=== PATIENT | male | born 1945 | race Caucasian/White ===

== ENCOUNTER → 2019-09-14 11:41 | Outpatient (CLI) | payer MEDICARE, SELFPAY ==
[2019-09-14 12:23] LABS: Influenza A - CEPHEID Flu A NEGATIVE (NEGATIVE); Influenza B - CEPHEID Flu B NEGATIVE (NEGATIVE)
== END ==
PROVIDERS: Visit Provider Physician Assistant
DX: R68.89 Other general symptoms and signs (principal)
CPT/HCPCS: 87502

== ENCOUNTER 2022-05-06 13:01 | Emergency (ER) | payer MEDICARE, SELFPAY ==
[2022-05-06 13:22] VITALS: BP 161/78; PULSE 94; RESP 18; TEMP 37.7; O2SAT 95; BMI 30.4
[2022-05-06 14:05] LABS: COVID19 -Nasal RAPID POSITIVE (Negative)
--- NOTE | 2022-05-06 20:06 | ED_ITS ---
HPI - URI/Sore Throat <CARLITO Morrell - Last Filed: 05/06/22 20:09> General Chief Complaint: Upper Respiratory Symptoms Stated Complaint: Fever, Chills, Not sleeping, Diarhea Time Seen by Provider: 05/06/22 14:48 Source: patient Mode of arrival: Ambulatory History of Present Illness HPI Narrative: 76-year-old male who presents to the emergency department with concern about COVID illness. He states that he has had a fever and chills, he is not sleeping well, has diarrhea and his symptoms started last night. He is COVID vaccinated, complains of congestion and a runny nose as well with fever and body aches. Denies any significant medical conditions, he is not on anticoagulants. He denies any severe shortness of breath, denies any chest pain, vomiting, wheezing or history of prior lung disease. Related Data Home Medications Medication Instructions Recorded Confirmed ascorbate calcium (vitamin C) PO 09/14/19 09/14/19 enalapril maleate 10 mg tablet 10 mg PO BID 09/14/19 09/14/19 fish kyl-[id number]-4-vit C-vit E PO 09/14/19 09/14/19 hydrochlorothiazide 12.5 mg capsule 12.5 mg PO DAILY 09/14/19 09/14/19 simvastatin 20 mg tablet 20 mg PO DAILY 09/14/19 09/14/19 Previous Rx's Medication Instructions Recorded albuterol sulfate 90 mcg/actuation 1 inh inhalation Q4-6H PRN 09/14/19 aerosol inhaler shortness of breath #18 grams benzonatate 100 mg capsule 100 mg PO BEDTIME #20 caps 09/14/19 Allergies Allergy/AdvReac Type Severity Reaction Status Date / Time No Known Drug Allergies Allergy Verified 09/14/19 11:56 Review of Systems <CARLITO Morrell - Last Filed: 05/06/22 20:09> Review of Systems Narrative: Review of systems is negative for acute abnormalities unless otherwise noted in HPI Patient History <CARLITO Morrell - Last Filed: 05/06/22 20:09> Social History Smoking Status: Former smoker Smoking Status: Former smoker Substance Use Type: does not use Exam <CARLITO Morrell - Last Filed: 05/06/22 20:09> Narrative Exam Narrative: Reviewed vitals signs and nursing notes. General: cooperative, comfortable, in no acute distress, well groomed, febrile HEENT: symmetrical facial expressions, moist mucous membranes Cardiovascular: regular rate and rhythm, no peripheral edema, warm extremities Respiratory: normal effort, able to speak in complete sentences, without wheezing, stridor, or abnormal breath sounds. No retractions or tachypnea. GI: abdomen soft, nontender to palpation, nondistended, without masses, rebound tenderness or exquisite tenderness with exam. MSK: moves all extremities, neurovascularly intact, no weakness, normal tone Skin: brisk capillary refill, without pallor or erythema Neuro: normal speech and cognition, A&O x3, ambulatory, clear speech Psych: mental status is grossly normal, congruent mood, normal affect, pleasant and cooperative Initial Vital Signs Initial Vital Signs: Vital Signs Temperature 99.8 F H 05/06/22 13:22 Pulse Rate 94 H 05/06/22 13:22 Respiratory Rate 18 05/06/22 13:22 Blood Pressure 161/78 H 05/06/22 13:22 Pulse Oximetry 95 05/06/22 13:22 Oxygen Delivery Method 05/06/22 13:22 <Jeannie Daniels DO - Last Filed: 05/07/22 04:52> Initial Vital Signs Initial Vital Signs: Vital Signs Temperature 99.8 F H 05/06/22 13:22 Pulse Rate 94 H 05/06/22 13:22 Respiratory Rate 18 05/06/22 13:22 Blood Pressure 161/78 H 05/06/22 13:22 Pulse Oximetry 95 05/06/22 13:22 Oxygen Delivery Method 05/06/22 13:22 Course <CARLITO Morrell - Last Filed: 05/06/22 20:09> Orders Ordered: ED Orders 05/06/22 13:42 COVID19 -Nasal RAPID/Pre-Proc Stat Vital Signs Vital signs: Vital Signs - 8 hr 05/06/22 13:22 Temperature 99.8 F H Pulse Rate 94 H Respiratory Rate 18 Blood Pressure 161/78 H Pulse Oximetry 95 Oxygen Delivery Method Room Air <Jeannie Daniels DO - Last Filed: 05/07/22 04:52> Orders Ordered: ED Orders 05/06/22 13:42 COVID19 -Nasal RAPID/Pre-Proc Stat Vital Signs Vital signs: Vital Signs - 8 hr 05/06/22 13:22 Temperature 99.8 F H Pulse Rate 94 H Respiratory Rate 18 Blood Pressure 161/78 H Pulse Oximetry 95 Oxygen Delivery Method Room Air MDM - URI/Sore Throat <CARLITO Morrell - Last Filed: 05/06/22 20:09> Lab Data Labs: Lab Results 05/06/22 Range/Units 13:42 SARS-CoV-2 (PCR) Positive H (Negative) MDM Narrative Medical decision making narrative: This is a 76-year-old gentleman without significant prior medical history who presents to the emergency department with concern for COVID illness with congestion, body aches, fever, diarrhea and symptoms which started yesterday. He tested positive for COVID via PCR on day 2 of symptoms without hypoxia, respiratory distress, dehydration, or focal exam to suggest secondary bacterial infection. Discussed CDC guidelines for quarantine, mask wearing, physical distancing, and infection prevention measures such as frequent handwashing. Discussed supportive treatments: Tylenol/Motrin as needed for pain/fever. OTC decongestant medications and/or antihistamines for symptomatic relief. Maintain adequate fluid intake. Follow-up with PCP as directed. Return to clinic/ER instructions discussed for new, not improving, or worsening symptoms. All questions answered. Encourage patient to return to the emergency department for any worsening of his symptoms within the 1st 5 days of his illness because we can treat him for COVID if he does not have improvement. I encouraged him to go home and take Tylenol and ibuprofen as needed for his symptoms, patient and his were still sitting in the waiting room and it was going to be a long time before they were have a room so they wish to go home and take their other medications that they needed to take. <Jeannie Daniels DO - Last Filed: 05/07/22 04:52> Lab Data Labs: Lab Results 05/06/22 Range/Units 13:42 SARS-CoV-2 (PCR) Positive H (Negative) Discharge Plan Departure Patient Disposition: Home Clinical Impression: COVID-19 Instructions: COVID-19 Activity Restrictions/Additional Instructions: You have been diagnosed with COVID-19. I am sorry for your symptoms, it is okay to use albuterol inhaler for wheezing if you have it but otherwise please treat your symptoms with [id number] medications like Tylenol or ibuprofen for fever, stay hydrated, you can take Zyrtec if you have a runny nose or congestion, for a productive cough you can try Mucinex. Please return for worsening of your symptoms. Please follow-up with your primary doctor after your illness and if you have worsening during your illness, please come to the emergency department again for another evaluation. I hope you feel better soon. *What to do: *Please continue to take your regular medications as directed. [ ] New medication prescriptions sent to your pharmacy: [ ] [ ] New medication written as a paper prescription [x ] No new medications given *Please follow up with your primary care provider in 2-3 days, call for an appointment. Let them know you were seen in the Emergency Department and that we asked that you be seen for follow-up. We will electronically transmit a record of today's note if your PCP is in our system *If you do not have a primary care provider please contact [phone] to establish care with one of [facility] primary care providers. *Return to Emergency Department if you should have any new, worsening, or concerning symptoms, such as [fever greater than 101F, chills, worsening pain, persistent vomiting or other bothersome symptoms]. Prescriptions: No Action simvastatin 20 mg tablet 20 mg PO DAILY hydrochlorothiazide 12.5 mg capsule 12.5 mg PO DAILY enalapril maleate 10 mg tablet 10 mg PO BID ascorbate calcium (vitamin C) PO fish [id number]-8-vit C-vit E PO albuterol sulfate 90 mcg/actuation HFA aerosol inhaler 1 inh INHALATION Q4-6H PRN (Reason: shortness of breath) Qty: 18 0RF benzonatate 100 mg capsule 100 mg PO BEDTIME Qty: 20 0RF Visit Report Forms: Patient Portal/API <Jeannie Daniels, - Last Filed: 05/07/22 04:52> [facility] ED Attending Coy Attestation: I was immediately available in the department for consultation. Documentation has been reviewed. I agree with assessment and plan.
== END 2022-05-06 15:10 | disposition home or self-care (01) ==
PROVIDERS: Emergency Medicine; Emergency Provider Nurse Practitioner Critical Care Medicine
DX: U07.1 COVID-19 (principal)
CPT/HCPCS: 87635; 99281; 99282; C9803